=== PATIENT | female | born 1980 | race African-American/Black ===

== ENCOUNTER 2017-11-22 22:12 | Emergency (ER) | payer OTHER ==
[2017-11-22] MEDS ORDERED: MORPHINE SULFATE 10 MG/ML INJ IV ONE (23:04)
[2017-11-23 00:16] LABS: ABSOLUTE LYMPHOCYTES (AUTO) 2.1 10^3/uL (0.5-4.7); ABSOLUTE MONOCYTES (AUTO) 0.9 10^3/uL (0.1-1.4); ABSOLUTE NEUT (AUTO) 7.8 10^3/uL (1.7-8.2); BASOPHILS % (AUTO) 0.3 % (0-2); EOSINOPHILS % (AUTO) 0.3 % (0-6); HEMATOCRIT 42.3 % (36.0-47.0); HEMOGLOBIN 14.3 g/dL (12.0-15.5); LYMPHOCYTES % (AUTO) 19.5 % (13-45); MEAN CORPUSCULAR HEMOGLOBIN 28.8 pg (27.0-33.4); MEAN CORPUSCULAR HGB CONC 33.7 g/dL (32.0-36.0); MEAN CORPUSCULAR VOLUME 85 fl (80-97); MONOCYTES % (AUTO) 8.1 % (3-13); PLATELET COUNT 277 10^3/uL (150-450); RED BLOOD COUNT 4.96 10^6/uL (3.72-5.28); RED CELL DISTRIBUTION WIDTH 14.1 % (11.5-14.0); SEGMENTED NEUTROPHILS % (AUTO) 71.8 % (42-78); TOTAL CELLS COUNTED % (AUTO) 100 %; WHITE BLOOD COUNT 10.9 10^3/uL (4.0-10.5)
[2017-11-23 01:27] LABS: ANION GAP 10 (5-19); BLOOD UREA NITROGEN 7 mg/dL (7-20); CALCIUM 9.6 mg/dL (8.4-10.2); CARBON DIOXIDE 24 mmol/L (22-30); CHLORIDE 105 mmol/L (98-107); GLUCOSE 112 mg/dL (75-110); POTASSIUM 4.3 mmol/L (3.6-5.0); SODIUM 138.7 mmol/L (137-145)
[2017-11-23] MEDS ORDERED: ONDANSETRON HCL INJ/PF 4 MG/2 ML SDV IV ONE (01:37)
[2017-11-23] MEDS ORDERED: KETOROLAC TROMETHAMINE INJ/PF 30 MG/1 ML SDV IV ONE (01:37)
[2017-11-23] MEDS ORDERED: MORPHINE SULFATE 10 MG/ML INJ IV ONE (02:32)
--- NOTE | 2017-11-23 04:07 | RADIOLOGY REPORT (SQ) ---
EXAM DESCRIPTION: U/S OB TRANSVAG W/DOPPLER CLINICAL HISTORY: 37 years, Female, vaginal bleeding in COMPARISON: None. TECHNIQUE: Transvaginal sonogram. LIMITATIONS: Active vaginal hemorrhage during exam. FINDINGS: demise pattern includes an intrauterine fetus with no cardiac activity. If the fetus were viable, its crown-rump length of 1.4 cm would correspond with gestational age of seven weeks four days. Ovarian fossae appear unremarkable. Ovaries are not visualized. No free fluid. IMPRESSION: demise pattern. Recommend serial laboratory/sonographic confirmation as clinically warranted.
[2017-11-23] MEDS ORDERED: HYDROCODONE/ACETAMINOPHEN 5-325 MG (6 TAB/ER DISP) PO PRN (04:23)
--- NOTE | 2017-11-23 04:28 | ER Document Report ---
ED General - General Chief Complaint: Vaginal Bleeding Stated Complaint: ABDOMINAL PAIN Time Seen by Provider: 11/22/17 22:54 Notes: Patient is a 37-year-old female presents with complaint of heavy vaginal bleeding. This patient's fifth . Patient is approximately 7 weeks . [facility] to [facility] and then yesterday was given medication to help induce an . Should today start having a lot of cramping and pain and heavy bleeding. She felt dizzy but did not pass out. No difficulty breathing. She was given a prescription for Percocet but has not yet filled this prescription. No other complaints at this time. TRAVEL OUTSIDE OF THE [place] IN LAST 30 DAYS: No - Related Data Allergies/Adverse Reactions: amoxicillin trihydrate [From Augmentin] Allergy (Verified 11/23/17 03:20) chlorpheniramine maleate [From Robitussin Cough & Cold] Allergy (Verified 03:20) dextromethorphan HBr [From Robitussin Cough & Cold] Allergy (Verified 11/23/17 03:20) diphenhydramine HCl [From Robitussin Cough & Cold] Allergy (Verified 11/23/17 03 :20) latex [Latex] Allergy (Verified 11/23/17 03:20) phenylephrine HCl [From Robitussin Cough & Cold] Allergy (Verified 11/23/17 03: 20) Potassium Clavulanate * [From Augmentin] Allergy (Verified 11/23/17 03:20) pseudoephedrine HCl [From Robitussin Cough & Cold] Allergy (Verified 11/23/17 03 :20) Sulfa (Sulfonamide Antibiotics) Allergy (Verified 11/23/17 03:20) Past Medical History - Social History Smoking Status: Never Smoker Frequency of alcohol use: None Drug Abuse: None Family History: Reviewed & Not Pertinent, Other - no FH of migraines. No immediate family members with brain aneurysms, early onset CVA. No sick familial contacts. Patient has suicidal ideation: No Patient has homicidal ideation: No Pulmonary Medical History: Reports: Hx Asthma Renal/ Medical History: Denies: Hx Peritoneal Dialysis Past Surgical History: Reports: Hx Section - 2, Hx Gynecologic Surgery - D&C - Immunizations Hx Diphtheria, Pertussis, Tetanus Vaccination: Yes Review of Systems - Review of Systems Notes: My Normal Review Basic REVIEW OF SYSTEMS: CONSTITUTIONAL : Denies fever, chills, or sweats. Denies recent illness. RESPIRATORY: Denies cough, cold, or chest congestion. Denies shortness of breath, difficulty breathing, or wheezing. GASTROINTESTINAL: Crampy lower abdominal pain. Denies nausea, vomiting, or diarrhea. GENITOURINARY: Denies difficulty urinating, painful urination, burning, frequency, or blood in urine. FEMALE GENITOURINARY: Heavy vaginal bleeding MUSCULOSKELETAL: Denies neck or back pain or joint pain or swelling. SKIN: Denies rash or skin lesions. NEUROLOGICAL: Denies altered mental status or loss of consciousness. Denies headache. Denies weakness or paralysis or loss of use of either side. Denies problems with gait or speech. Denies sensory or motor loss. ALL OTHER SYSTEMS REVIEWED AND NEGATIVE. Physical Exam - Vital signs Vitals: Temp Pulse Resp BP Pulse Ox 98.4 F 84 18 118/79 100 11/22/17 22:26 11/22/17 22:26 11/22/17 22:26 11/22/17 22:26 11/22/17 22:26 - Notes Notes: General Appearance: Well nourished, alert, cooperative, no acute distress, moderate obvious discomfort. Vitals: reviewed, See vital signs table. Eyes: PERRL, EOMI, Conjuctiva clear Lungs: No wheezing, No rales, No rhonci, No accessory muscle use, good air exchange bilaterally. Heart: Normal rate, Regular rythm, No murmur, no rub Abdomen: Normal BS, soft, No rigidity, suprapubic abdominal tenderness outpatient, No guarding, no rebound, no abdominal masses, no organomegaly Pelvic exam: Normal external genitalia. Few small blood clots in vaginal vault. No active large hemorrhage. Pelvic exam was performed with female blood bank manager Sharlene Romo RN in the room. Extremities: good pulses in all extremities, no swelling or tenderness in the extremities, no edema. Neuro: speech clear, oriented x 3, normal affect, responds appropriately to questions. Course - Re-evaluation Re-evalutation: 11/23/17 04:33 Patient much improved after receiving the morphine. Pelvic exam showed some blood but the vaginal vault but no clots and cervical loss. Ultrasound shows findings consistent with demise. Patient's hemoglobin is normal. Informed patient that she is safe to be discharged home. I encourage her to fill her prescription for the Percocet. We will give her some [place] to take home with her until she is able get her Percocet prescription filled. Informed to return to ER immediately if she has fevers, syncope, difficulty breathing, or she feels she is worsening in any way. She does have an upcoming follow[facility]up appointment with [facility]. I informed her that she is to keep this appointment. Patient agrees with plan will be discharged home. Dictation of this chart was performed using voice recognition software; therefore, there may be some unintended grammatical errors. - Vital Signs Vital signs: Temp Pulse Resp BP Pulse Ox 98.5 F 73 18 132/84 H 97 11/23/17 03:05 11/23/17 03:05 11/23/17 03:05 11/23/17 03:05 11/23/17 03:05 - Laboratory Result Diagrams: 11/22/17 23:48 11/22/17 23:48 Laboratory results interpreted by me: 11/22/17 11/22/17 23:48 23:48 WBC 10.9 H RDW 14.1 H Glucose 112 H Beta HCG, Quant 18836.00 H Discharge - Discharge Clinical Impression: demise Condition: Good Disposition: HOME, SELF-CARE Instructions: Oral Narcotic Medication ([facility]) Additional Instructions: [facility] on your scheduled appointment. Please return to the ER immediately if you have fevers or if your bleeding becomes very heavy and you are concerned you are losing too much blood. Signs of losing too much blood with the passing out, difficulty breathing, or worsening weakness. Forms: Return to Work
[2017-11-23 04:45] VITALS: BP 114/62
== END 2017-11-23 04:50 | disposition home or self-care (01) ==
LOC: ER 22:12
DX: O02.1 Missed abortion (principal); R42 Dizziness and giddiness; Z88.2 Allergy status to sulfonamides; Z91.040 Latex allergy status
CPT/HCPCS: 96376; 99284; 96374; 96375; 36415; 84702; 85025; 80048; 76817; 93976; J1885; J2270 ×2; J2405

== ENCOUNTER 2017-11-26 06:43 | Day surgery (SDC) | payer OTHER ==
[2017-11-26 07:54] LABS: ABSOLUTE EOSINOPHILS # (AUTO) 0.1 10^3/uL (0.0-0.6); ABSOLUTE LYMPHOCYTES (AUTO) 2.1 10^3/uL (0.5-4.7); ABSOLUTE MONOCYTES (AUTO) 0.6 10^3/uL (0.1-1.4); ABSOLUTE NEUT (AUTO) 4.7 10^3/uL (1.7-8.2); BASOPHILS % (AUTO) 0.7 % (0-2); HEMATOCRIT 36.5 % (36.0-47.0); HEMOGLOBIN 12.1 g/dL (12.0-15.5); LYMPHOCYTES % (AUTO) 28.4 % (13-45); MEAN CORPUSCULAR HEMOGLOBIN 28.1 pg (27.0-33.4); MEAN CORPUSCULAR VOLUME 85 fl (80-97); PLATELET COUNT 231 10^3/uL (150-450); RED BLOOD COUNT 4.29 10^6/uL (3.72-5.28); RED CELL DISTRIBUTION WIDTH 14.2 % (11.5-14.0); SEGMENTED NEUTROPHILS % (AUTO) 61.9 % (42-78); TOTAL CELLS COUNTED % (AUTO) 100 %; WHITE BLOOD COUNT 7.5 10^3/uL (4.0-10.5)
[2017-11-26 08:14] LABS: POTASSIUM 4.1 mmol/L (3.6-5.0)
[2017-11-26] MEDS ORDERED: PROPOFOL INJ 200 MG/20 ML VIAL IV ONE (09:22)
[2017-11-26] MEDS ORDERED: ACETAMINOPHEN 100 ML IV ONE (09:22)
[2017-11-26] MEDS ORDERED: LIDOCAINE 2% INJ-PF (20 MG/ML) 10 ML AMPUL ONE (09:22)
[2017-11-26] MEDS ORDERED: MIDAZOLAM 2 MG/2 ML INJ ONE (09:22)
[2017-11-26] MEDS ORDERED: FENTANYL CITRATE INJ/PF 100 MCG/2 ML AMPUL ONE ×2 (09:22→10:03)
[2017-11-26] MEDS ORDERED: ONDANSETRON HCL INJ/PF 4 MG/2 ML SDV ONE ×2 (09:28→14:30)
[2017-11-26] MEDS ORDERED: DEXAMETHASONE SOD PHOSPHATE INJ 4 MG/1 ML VIAL ONE ×2 (09:28→14:30)
[2017-11-26] MEDS ORDERED: OXYCODONE-ACETAMINOPHEN 5-325 MG TABLET PO PRN ×4 (10:01→11:57)
[2017-11-26] MEDS ORDERED: ONDANSETRON HCL INJ/PF 4 MG/2 ML SDV IV PRN (10:01)
[2017-11-26] MEDS ORDERED: PROMETHAZINE HCL INJ 25 MG/1 ML VIAL IV PRN ×2 (10:01)
[2017-11-26] MEDS ORDERED: FENTANYL CITRATE INJ/PF 100 MCG/2 ML AMPUL IV PRN ×3 (10:01)
[2017-11-26] MEDS ORDERED: MEPERIDINE HCL/PF INJ 25 MG/1 ML DISP.SYRIN IV PRN (10:01)
--- NOTE | 2017-11-26 10:59 | OPERATIVE REPORT E ---
Operative Report NAME: SOLOMON PANTOJA : 1980 AGE: 37Y DATE OF SURGERY: 11/26/2017 ROOM: PREOPERATIVE DIAGNOSIS: INCOMPLETE AB AT 7 WEEKS. POSTOPERATIVE DIAGNOSIS: INCOMPLETE AB AT 7 WEEKS. OPERATION: Suction dilation and curettage. SURGEON: LUI GRACE M.D. ANESTHESIA: Dr. Orta with general. FINDINGS: The uterus is sounded to approximately 8-1/2 cm. Copious amounts of tissue within the uterus obtained, the small amount of tissue that was extruding from an open os at the beginning of the procedure. COMPLICATIONS: None. ESTIMATED BLOOD LOSS: 50 mL. PROCEDURE: The patient was taken to the operating room, prepared and draped in normal size and function in the dorsal lithotomy position under sterile conditions. An in and out catheter was performed of approximately 50 mL of clear urine. Sterile speculum was placed in the vagina. The cervix was prepped with Betadine and grasped on the anterior lip with a single-toothed tenaculum. The uterus was then sounded to approximately 8.5 cm with uterine sounds, dilated to accommodate a 12 mm curved suction curette. The suction curette was applied into the uterus and a significant amount of tissue was obtained that did look like deciduous-type tissue. Approximately 4 passes were made with the curette until no tissue was coming forth. A sharp curettage was then performed with 360 degrees of good grit within the uterus and the procedure was then concluded. The os was starting to close down at the end of the procedure. Instruments were removed. Sponge, lap, and needle counts were correct x2 and the patient was taken to Recovery in stable condition. DICTATING PHYSICIAN: LUI GRACE M.D. [id number] PHY#: [id number] ID: [id number] JOB#: [id number] ACCT: [id number] cc:LUI GRACE M.D. >
[2017-11-26] MEDS ORDERED: HYDROMORPHONE HCL INJ/PF 2 MG/ML AMPULE IM PRN (11:56)
[2017-11-26] MEDS ORDERED: IBUPROFEN 800 MG TABLET PO PRN (11:56)
[2017-11-26] MEDS ORDERED: RINGERS SOLUTION,LACTATED 1,000 ML IV PRN (11:57)
[2017-11-26 13:42] VITALS: BP 136/84
[2017-11-26] MEDS ORDERED: SUCCINYLCHOLINE CHLORIDE INJ 200 MG/10 ML VIAL ONE (14:30)
== END 2017-11-26 12:15 | disposition home or self-care (01) ==
LOC: OROUT 06:43
PROVIDERS: ATTEND Obstetrics & Gynecology
PROC: 10D17ZZ Extraction of Products of Conception, Retained, Via Natural or Artificial Opening (ICD-10-PCS; principal; 2017-11-26 09:00)
DX: O02.1 Missed abortion (principal); E03.9 Hypothyroidism, unspecified; E78.00 Pure hypercholesterolemia, unspecified; E11.9 Type 2 diabetes mellitus without complications; E66.01 Morbid (severe) obesity due to excess calories; Z68.41 Body mass index [BMI] 40.0-44.9, adult; Z79.84 Long term (current) use of oral hypoglycemic drugs; Z88.2 Allergy status to sulfonamides; Z88.8 Allergy status to other drugs, medicaments and biological substances; Z79.1 Long term (current) use of non-steroidal anti-inflammatories (NSAID); Z91.040 Latex allergy status
CPT/HCPCS: 36415; 82947; 84132; 85025; 88305 ×2; 59820; J2250; J1100; J3010; J0330; J2405; J2704; J3490; J0131; 1965

== ENCOUNTER 2019-02-14 01:15 | Emergency (ER) | payer OTHER ==
[2019-02-14] MEDS ORDERED: LIDOCAINE 1%/EPINEPHRINE INJ 20 ML VIAL INJ ONE (01:36)
[2019-02-14] MEDS ORDERED: DOXYCYCLINE HYCLATE 100 MG TABLET PO ONE (01:36)
--- NOTE | 2019-02-14 01:56 | ER Document Report ---
ED General - General Chief Complaint: Insect Bite Stated Complaint: POSSIBLE BUG BITE Time Seen by Provider: 02/14/19 01:27 Notes: Patient is a pleasant 38-year-old female presents with complaint of possible bug bite on the right inner thigh. She says started a small bump but now the larger swollen area. No fevers. No vomiting. No diarrhea. No previous history of having this in the past. She did not actually see a bug bite of the leg. TRAVEL OUTSIDE OF THE [place] IN LAST 30 DAYS: No - Related Data Allergies/Adverse Reactions: amoxicillin trihydrate [From Augmentin] Allergy (Verified 11/23/17 03:20) chlorpheniramine maleate [From Robitussin Cough & Cold] Allergy (Verified 11/23/17 03:20) dextromethorphan HBr [From Robitussin Cough & Cold] Allergy (Verified 11/23/17 03:20) diphenhydramine HCl [From Robitussin Cough & Cold] Allergy (Verified 11/23/17 03:20) latex [Latex] Allergy (Verified 11/23/17 03:20) nickel Allergy (Verified 11/26/17 07:22) phenylephrine HCl [From Robitussin Cough & Cold] Allergy (Verified 11/23/17 03:20) Potassium Clavulanate * [From Augmentin] Allergy (Verified 11/23/17 03:20) pseudoephedrine HCl [From Robitussin Cough & Cold] Allergy (Verified 11/23/17 03:20) Sulfa (Sulfonamide Antibiotics) Allergy (Verified 11/23/17 03:20) Past Medical History - Social History Smoking Status: Never Smoker Frequency of alcohol use: None Drug Abuse: None Family History: Reviewed & Not Pertinent, Other - no FH of migraines. No immediate family members with brain aneurysms, early onset CVA. No sick familial contacts. - Past Medical History Cardiac Medical History: Denies: Hx Coronary Artery Disease, Hx Heart Attack, Hx Hypertension Pulmonary Medical History: Reports: Hx Asthma Denies: Hx Bronchitis, Hx COPD, Hx Pneumonia Neurological Medical History: Denies: Hx Cerebrovascular Accident, Hx Seizures Renal/ Medical History: Denies: Hx Peritoneal Dialysis Musculoskeletal Medical History: Denies Hx Arthritis Past Surgical History: Reports: Hx Section - 2, Hx Gynecologic Surgery - D&C - Immunizations Hx Diphtheria, Pertussis, Tetanus Vaccination: Yes Review of Systems - Review of Systems Notes: My Normal Review Basic REVIEW OF SYSTEMS: CONSTITUTIONAL : Denies fever, chills, or sweats. Denies recent illness. MUSCULOSKELETAL: Pain and swelling right inner thigh SKIN: Possible abscess right inner thigh. NEUROLOGICAL: Denies altered mental status or loss of consciousness. Denies headache. Denies weakness or paralysis or loss of use of either side. Denies problems with gait or speech. Denies sensory or motor loss. ALL OTHER SYSTEMS REVIEWED AND NEGATIVE. Physical Exam - Vital signs Vitals: Temp Pulse Resp BP Pulse Ox 97.9 F 85 20 122/72 99 02/14/19 01:22 02/14/19 01:22 02/14/19 01:02/14/19 01:02/14/19 01:22 - Notes Notes: General Appearance: Well nourished, alert, cooperative, no acute distress, no obvious discomfort. Vitals: reviewed, See vital signs table. Eyes: Conjuctiva clear Extremities: strength 5/5 in all extremities, good pulses in all extremities, 3 cm area of induration in the right inner thigh. No spreading erythema or redness. No crepitance to palpation. Bedside ultrasound confirms that there is a fluid pocket underneath the area of induration consistent with abscess. Skin: warm, dry, appropriate color, no rash Neuro: speech clear, oriented x 3, normal affect, responds appropriately to questions. Course - Re-evaluation Re-evalutation: 02/14/19 02:34 Performed a incision and drainage of the abscess. Small amount of purulent drainage was expressed. This voiced too small to pack. Patient placed on doxycycline. She is encouraged to return to ER if she has any fevers, spreading redness or swelling, or if she feels she is worsening in any way. Patient agrees with plan will be discharged home. Dictation of this chart was performed using voice recognition software; therefore, there may be some unintended grammatical errors. - Vital Signs Vital signs: Temp Pulse Resp BP Pulse Ox 97.9 F 85 20 122/72 99 02/14/19 01:22 02/14/19 01:02/14/19 01:02/14/19 01:02/14/19 01:22 Procedures - Incision and Drainage Right Thigh Type: Simple Anesthetic type: 1% Lidocaine w/epi mL's of anesthetic: 2 Blade size: 11 I&D procedure: Betadine prep applied Incision Method: Incision made by scalpel Amount/type of drainage: small purulent Discharge - Discharge Clinical Impression: Abscess Condition: Good Disposition: HOME, SELF-CARE Additional Instructions: Please wash area with soap and water twice a day. Pat dry. Please take the antibiotic as prescribed. The antibiotic I prescribed you is doxycycline. Doxycycline will make your skin more sensitive to the sun so please make sure you keep your skin covered or wear sunscreen whenever out in the sun. Please return to the ER immediately if you have fevers, increasing swelling or redness to the thigh, or if you feel you are worsening in any way. Prescriptions: Doxycycline Hyclate 100 mg PO BID #14 capsule Forms: Return to Work
[2019-02-14 03:16] VITALS: BP 112/68
== END 2019-02-14 03:16 | disposition home or self-care (01) ==
LOC: ER 01:15
DX: L02.415 Cutaneous abscess of right lower limb (principal); J45.909 Unspecified asthma, uncomplicated; Z88.0 Allergy status to penicillin; Z88.8 Allergy status to other drugs, medicaments and biological substances; Z91.040 Latex allergy status; Z91.048 Other nonmedicinal substance allergy status; Z88.2 Allergy status to sulfonamides
CPT/HCPCS: 99281; 10060; J3490

== ENCOUNTER 2019-04-09 11:47 | Emergency (ER) | payer OTHER ==
[2019-04-09 11:52] VITALS: BP 131/81
[2019-04-09] MEDS ORDERED: ACETAMINOPHEN 325 MG TABLET PO ONE (12:46)
--- NOTE | 2019-04-09 12:47 | ER Document Report ---
HPI - HPI Patient complains to provider of: back pain Time Seen by Provider: 04/09/19 12:39 Onset: Last week Onset/Duration: Persistent Quality of pain: Achy Pain Level: 3 Context: Patient complains of right lower back that radiates to the right lower extremity for the past week. Patient denies any recent injury although does report a previous history of sciatica in the past. Patient also reports some urinary frequency but denies any dysuria or hematuria. Associated Symptoms: Other - low back pain, urinary freq. denies: Fever, Headache Exacerbated by: Standing, Movement Relieved by: Denies Similar symptoms previously: Yes Recently seen / treated by doctor: No - ROS ROS below otherwise negative: Yes Systems Reviewed and Negative: Yes All other systems reviewed and negative - CONSTITUTIONAL Constitutional: DENIES: Fever, Chills - NEURO Neurology: DENIES: Headache, Weakness - GASTROINTESTINAL Gastrointestinal: DENIES: Abdominal Pain, Nausea, Patient vomiting - URINARY Urinary: REPORTS: Frequency. DENIES: Dysuria, Urgency - REPRODUCTIVE Reproductive: DENIES: : - MUSCULOSKELETAL Musculoskeletal: REPORTS: Extremity pain, Back Pain. DENIES: Neck Pain - DERM Skin Color: Normal Skin Problems: None Past Medical History - General Information source: Patient - Social History Smoking Status: Never Smoker Chew tobacco use (# tins/day): No Frequency of alcohol use: None Drug Abuse: None Occupation: [employer] Family History: Reviewed & Not Pertinent, Other - no FH of migraines. No immediate family members with brain aneurysms, early onset CVA. No sick familial contacts. Patient has suicidal ideation: No Patient has homicidal ideation: No Pulmonary Medical History: Reports: Hx Asthma Endocrine Medical History: Reports: Hx Diabetes Mellitus Type 2 Renal/ Medical History: Denies: Hx Peritoneal Dialysis Musculoskeletal Medical History: Denies Hx Arthritis, Reports Other - sciatica Psychiatric Medical History: Reports: Hx Attention Deficit Hyperactivity Disorder Past Surgical History: Reports: Hx Section - 2, Hx Gynecologic Surgery - D&C - Immunizations Hx Diphtheria, Pertussis, Tetanus Vaccination: Yes Vertical Provider Document - CONSTITUTIONAL Agree With Documented VS: Yes Exam Limitations: No Limitations General Appearance: WD/WN, No Apparent Distress Notes: PHYSICAL EXAMINATION: GENERAL: Well-appearing, well-nourished and in no acute distress. HEAD: Atraumatic, normocephalic. EYES: sclera clear, anicteric, conjunctiva are normal. ENT: nares patent, Moist mucous membranes. NECK: Normal range of motion, supple no lymphadenopathy LUNGS: respirations unlabored HEART: Regular rate and rhythm without murmurs EXTREMITIES: Normal range of motion, no pitting or edema. No cyanosis. Gait normal, pt ambulates without difficulty BACK: Right lower lumbar paraspinal tenderness, no midline tenderness, no deformities or step-offs. No CVA tenderness. NEUROLOGICAL: Cranial nerves grossly intact. Normal speech, normal gait. No saddle anesthesia. PSYCH: Normal mood, normal affect. SKIN: Warm, Dry, normal turgor, no rashes or lesions noted. - INFECTION CONTROL TRAVEL OUTSIDE OF THE [place] IN LAST 30 DAYS: No Course - Vital Signs Vital signs: Temp Pulse Resp BP Pulse Ox 98.4 F 100 20 131/81 H 97 04/09/19 11:51 04/09/19 11:51 04/09/19 11:51 04/09/19 11:51 04/09/19 11:51 Discharge - Discharge Clinical Impression: Sciatica Qualifiers: Laterality: right Qualified Code(s): M54.31 - Sciatica, right side Condition: Stable Disposition: HOME, SELF-CARE Instructions: Ice Packs ([facility]), Low Back Pain ([facility]), Oral Narcotic Medication ([facility]), Sciatica ([facility]), Steroid Medication Additional Instructions: Return immediately for any new or worsening symptoms Followup with your primary care provider, call tomorrow to make a followup appointment Prescriptions: Hydrocodone/Acetaminophen [Kermit 5-325 mg Tablet] 1 tab PO Q6 PRN #12 tablet PRN Reason: Lidocaine [Lidoderm 5% (700 mg) Transdermal Patch] 1 patch TP DAILY PRN #10 adh..patch PRN Reason: Prednisone [Deltasone 20 mg Tablet] 3 tab PO DAILY 5 Days tablet Forms: Return to Work Referrals: SANTIAGO MELISSA PA-C [Primary Care Provider] - Follow up as needed
[2019-04-09 13:07] LABS: APPEARANCE,URINE SLIGHTLY-CLOUDY; BILIRUBIN,URINE NEGATIVE (NEGATIVE); COLOR,URINE YELLOW; GLUCOSE, URINE NEGATIVE (NEGATIVE); KETONES,URINE NEGATIVE (NEGATIVE); LEUKOCYTE ESTERASE,URINE NEGATIVE (NEGATIVE); NITRITE,URINE NEGATIVE (NEGATIVE); PROTEIN,URINE NEGATIVE (NEGATIVE); URINE SPECIFIC GRAVITY 1.026
[2019-04-09] MEDS ORDERED: HYDROCODONE/ACETAMINOPHEN 5-325 MG TABLET PO ONE (13:46)
== END 2019-04-09 13:53 | disposition home or self-care (01) ==
LOC: ER 11:47
DX: M54.41 Lumbago with sciatica, right side (principal); R35.0 Frequency of micturition; E11.9 Type 2 diabetes mellitus without complications; J45.909 Unspecified asthma, uncomplicated
CPT/HCPCS: 81001; 99283

== ENCOUNTER 2019-04-13 13:38 | Emergency (ER) | payer OTHER ==
--- NOTE | 2019-04-13 14:21 | ER Document Report ---
ED Medical Screen (RME) - General Chief Complaint: Ankle Pain Stated Complaint: RIGHT LEG PAIN Primary Care Provider: SANTIAGO MELISSA PA-C [Primary Care Provider] - Follow up as needed TRAVEL OUTSIDE OF THE [place] IN LAST 30 DAYS: No - HPI Notes: 04/13/19 14:19 Patient is a 38-year-old female with a history of type 2 diabetes who presents complaining of right calf pain that has been relatively constant over the past 4 to 5 days with cramping and tightness associated. Patient is not aware of any injury. Patient states on occasion she will feel pain radiate down from the top of her leg. Patient is that she does have some back issues as well, but the pain is primarily to the calf and she is having trouble ambulating. Denies any prolonged immobilization, distance travel, recent surgery/trauma, personal cancer history, hormone use, smoking, or previous DVT/PE. Denies ISSA, fever, neck pain, URI, n/v/d, Abd pain, dysuria, back pain, or rash. I have treated and performed a rapid initial assessment of this patient. A comprehensive ED assessment and evaluation of the patient, analysis of test results and completion of medical decision making process will be conducted by additional ED providers. PHYSICAL EXAMINATION: GENERAL: Well-appearing, well-nourished and in no acute distress. A&Ox4. Answers questions appropriately. LUNGS: Breath sounds clear to auscultation bilaterally and equal. No wheezes rales or rhonchi. HEART: Regular rate and rhythm without murmurs, rubs, gallops. Tachycardic. Extremities: Trace edema b/l LE's. + tenderness rt calf. - Related Data Allergies/Adverse Reactions: amoxicillin trihydrate [From Augmentin] Allergy (Verified 04/13/19 14:01) chlorpheniramine maleate [From Robitussin Cough & Cold] Allergy (Verified 04/13/19 14:01) dextromethorphan HBr [From Robitussin Cough & Cold] Allergy (Verified 04/13/19 14:01) diphenhydramine HCl [From Robitussin Cough & Cold] Allergy (Verified 04/13/19 14:01) latex [Latex] Allergy (Verified 04/13/19 14:01) nickel Allergy (Verified 04/13/19 14:01) phenylephrine HCl [From Robitussin Cough & Cold] Allergy (Verified 04/13/19 14:01) Potassium Clavulanate * [From Augmentin] Allergy (Verified 04/13/19 14:01) pseudoephedrine HCl [From Robitussin Cough & Cold] Allergy (Verified 04/13/19 14:01) Sulfa (Sulfonamide Antibiotics) Allergy (Verified 04/13/19 14:01) Past Medical History - Past Medical History Cardiac Medical History: Denies: Hx Coronary Artery Disease, Hx Heart Attack, Hx Hypertension Pulmonary Medical History: Reports: Hx Asthma Denies: Hx Bronchitis, Hx COPD, Hx Pneumonia Neurological Medical History: Denies: Hx Cerebrovascular Accident, Hx Seizures Endocrine Medical History: Reports: Hx Diabetes Mellitus Type 2 Renal/ Medical History: Denies: Hx Peritoneal Dialysis Musculoskeltal Medical History: Denies Hx Arthritis Psychiatric Medical History: Reports: Hx Attention Deficit Hyperactivity Disorder Past Surgical History: Reports: Hx Section - 2, Hx Gynecologic Surgery - D&C - Immunizations Hx Diphtheria, Pertussis, Tetanus Vaccination: Yes History of Influenza Vaccine for 05/2017 - 10/2017 Season: Yes Physical Exam - Vital signs Vitals: Temp Pulse Resp BP Pulse Ox 98.1 F 119 H 20 131/71 H 96 04/13/19 14:15 04/13/19 14:15 04/13/19 14:15 04/13/19 14:15 04/13/19 14:15 Course - Vital Signs Vital signs: Temp Pulse Resp BP Pulse Ox 98.1 F 119 H 20 131/71 H 96 04/13/19 14:15 04/13/19 14:15 04/13/19 14:15 04/13/19 14:15 04/13/19 14:15 Doctor's Discharge - Discharge Referrals: SANTIAGO MELISSA PA-C [Primary Care Provider] - Follow up as needed
[2019-04-13 14:38] LABS: ABSOLUTE LYMPHOCYTES (AUTO) 1.4 10^3/uL (0.5-4.7); ABSOLUTE MONOCYTES (AUTO) 0.5 10^3/uL (0.1-1.4); ABSOLUTE NEUT (AUTO) 10.8 10^3/uL (1.7-8.2); BASOPHILS % (AUTO) 0.3 % (0-2); EOSINOPHILS % (AUTO) 0.1 % (0-6); HEMATOCRIT 44.7 % (36.0-47.0); HEMOGLOBIN 14.9 g/dL (12.0-15.5); LYMPHOCYTES % (AUTO) 11.1 % (13-45); MEAN CORPUSCULAR HEMOGLOBIN 28.4 pg (27.0-33.4); MEAN CORPUSCULAR HGB CONC 33.4 g/dL (32.0-36.0); MEAN CORPUSCULAR VOLUME 85 fl (80-97); MONOCYTES % (AUTO) 4.2 % (3-13); PLATELET COUNT 266 10^3/uL (150-450); RED BLOOD COUNT 5.26 10^6/uL (3.72-5.28); RED CELL DISTRIBUTION WIDTH 14.4 % (11.5-14.0); SEGMENTED NEUTROPHILS % (AUTO) 84.3 % (42-78); TOTAL CELLS COUNTED % (AUTO) 100 %; WHITE BLOOD COUNT 12.8 10^3/uL (4.0-10.5)
[2019-04-13 14:45] LABS: INTERNATIONAL RATION (INR) 1.03; PROTHROMBIN TIME 13.5 SEC (11.4-15.4)
[2019-04-13 14:46] LABS: PARTIAL THROMBOPLASTIN TIME 23.4 SEC (23.5-35.8)
[2019-04-13 14:59] LABS: ALBUMIN 4.2 g/dL (3.5-5.0); ALKALINE PHOSPHATASE 92 U/L (38-126); ANION GAP 11 (5-19); ASPARTATE AMINO TRANSFERASE 17 U/L (14-36); BILIRUBIN,DIRECT 0.2 mg/dL (0.0-0.4); BILIRUBIN,TOTAL 0.7 mg/dL (0.2-1.3); BLOOD UREA NITROGEN 17 mg/dL (7-20); CALCIUM 9.4 mg/dL (8.4-10.2); CARBON DIOXIDE 25 mmol/L (22-30); CHLORIDE 104 mmol/L (98-107); GLUCOSE 144 mg/dL (75-110); POTASSIUM 4.1 mmol/L (3.6-5.0); TOTAL PROTEIN 7.3 g/dL (6.3-8.2)
[2019-04-13] MEDS ORDERED: LIDOCAINE 5% (700 MG) TRANSDERMAL ADH..PATCH TP ONE (15:40)
--- NOTE | 2019-04-13 15:42 | ER Document Report ---
ED General - General Chief Complaint: Ankle Pain Stated Complaint: RIGHT LEG PAIN Time Seen by Provider: 04/13/19 15:05 Primary Care Provider: SANTIAGO MELISSA PA-C [Primary Care Provider] - Follow up as needed Notes: Patient is a 38-year-old female who presents emergency department with a chief complaint of right lower leg pain. Her pain started 4 to 5 days ago and she was seen in given meloxicam, prednisone, Vicodin, and she tried to take her gabapentin and Flexeril with little relief. Patient states that she cannot really walk upstairs like she normally does. Patient denies any control. Denies any long distance trips, shortness of breath, difficulty breathing, or any other symptoms. She describes the pain as an aching pain. TRAVEL OUTSIDE OF THE [place] IN LAST 30 DAYS: No - Related Data Allergies/Adverse Reactions: amoxicillin trihydrate [From Augmentin] Allergy (Verified 04/13/19 14:01) chlorpheniramine maleate [From Robitussin Cough & Cold] Allergy (Verified 04/13/19 14:01) dextromethorphan HBr [From Robitussin Cough & Cold] Allergy (Verified 04/13/19 14:01) diphenhydramine HCl [From Robitussin Cough & Cold] Allergy (Verified 04/13/19 14:01) latex [Latex] Allergy (Verified 04/13/19 14:01) nickel Allergy (Verified 04/13/19 14:01) phenylephrine HCl [From Robitussin Cough & Cold] Allergy (Verified 04/13/19 14 :01) Potassium Clavulanate * [From Augmentin] Allergy (Verified 04/13/19 14:01) pseudoephedrine HCl [From Robitussin Cough & Cold] Allergy (Verified 04/13/19 14:01) Sulfa (Sulfonamide Antibiotics) Allergy (Verified 04/13/19 14:01) Past Medical History - Social History Smoking Status: Never Smoker Frequency of alcohol use: None Drug Abuse: None Family History: Reviewed & Not Pertinent, Other - no FH of migraines. No immediate family members with brain aneurysms, early onset CVA. No sick familial contacts. Patient has suicidal ideation: No Patient has homicidal ideation: No - Past Medical History Cardiac Medical History: Denies: Hx Coronary Artery Disease, Hx Heart Attack, Hx Hypertension Pulmonary Medical History: Reports: Hx Asthma Denies: Hx Bronchitis, Hx COPD, Hx Pneumonia Neurological Medical History: Denies: Hx Cerebrovascular Accident, Hx Seizures Endocrine Medical History: Reports: Hx Diabetes Mellitus Type 2 Renal/ Medical History: Denies: Hx Peritoneal Dialysis Musculoskeletal Medical History: Denies Hx Arthritis Psychiatric Medical History: Reports: Hx Attention Deficit Hyperactivity Disorder Past Surgical History: Reports: Hx Section - 2, Hx Gynecologic Surgery - D&C - Immunizations Hx Diphtheria, Pertussis, Tetanus Vaccination: Yes Review of Systems - Review of Systems Notes: REVIEW OF SYSTEMS: CONSTITUTIONAL : Denies recent illness. Denies recent unintentional weight loss. Denies fever, chills, or sweats. EENT: Denies eye, ear, throat, or mouth pain, discharge, or symptoms. Denies nasal or sinus congestion. CARDIOVASCULAR: Denies chest pain. RESPIRATORY: Denies shortness of breath, cough, congestion, difficulty breathing, or wheezing. GASTROINTESTINAL: Denies nausea, vomiting, and diarrhea. Denies abdominal pain. Denies constipation. GENITOURINARY: Denies difficulty urinating, burning, blood in urine, urgency or frequency. MUSCULOSKELETAL: See HPI SKIN: Denies rash, itchiness, or lesions HEMATOLOGIC : Denies easy bruising or bleeding. LYMPHATIC: Denies swollen, painful, enlarged glands. NEUROLOGICAL: Denies no numbness or tingling denies weakness. Denies headache. Denies altered mental status. Denies alteration in speech. PSYCHIATRIC: Denies stress, anxiety, alteration in sleep patterns, or depression. All other systems reviewed and negative. Physical Exam - Vital signs Vitals: Temp Pulse Resp BP Pulse Ox 98.1 F 119 H 20 131/71 H 96 04/13/19 14:15 04/13/19 14:15 04/13/19 14:15 04/13/19 14:15 04/13/19 14:15 - Notes Notes: PHYSICAL EXAMINATION: GENERAL: Appears well, healthy, well-nourished, no acute distress. HEAD: Normocephalic, atraumatic. EYES: PERRL, conjunctiva normal, all extraocular movements intact, sclera nonicteric ENT: Moist mucous membranes. NECK: Supple, no noticeable swelling, redness, rash. Normal range of motion. LUNGS: Equal breath sounds bilaterally and clear to auscultation. No wheezes rales or rhonchi. CARDIOVASCULAR: S1-S2, regular rate, regular rhythm. Radial pulses 2+, normal. ABDOMEN: Normoactive bowel sounds. Soft, nontender, no guarding, no rebound tenderness, and no masses palpated. EXTREMITIES: Normal strength and range of motion, tender right lower extremity at calf, posterior thigh, and Buttock. NEUROLOGICAL: Moves all extremities upon command. Strength 5/5 in all extremities. PSYCH: Normal mood, normal affect. SKIN: Warm, dry. No rash, lesions, ulcerations noted. Normal skin turgor. Course - Re-evaluation Re-evalutation: 04/13/19 16:30 Patient's venous Doppler study was negative for any DVT. She had a mild leukocytosis she had a mild leukocytosis of 12,000, but I suspect this is due to the patient starting to workout in gym earlier this month. I have advised her that she may benefit from physical therapy and have told her that she needs to see if her primary care doctor can refer her to physical therapy. Her history is most consistent with sciatic nerve pain. I will change her Flexeril to Ro baxin and give her some more lidocaine patches, as she states that the lidocaine patches do help her. I also educated her on some rolling and massage therapy. She will follow-up with her primary care provider. Follow-up precautions were given. Verbal discharge instructions were given to the patient. They verbalized understanding. They are stable for discharge. - Vital Signs Vital signs: Temp Pulse Resp BP Pulse Ox 98.1 F 119 H 20 131/71 H 96 04/13/19 14:15 04/13/19 14:15 04/13/19 14:15 04/13/19 14:15 04/13/19 14:15 - Laboratory Result Diagrams: 04/13/19 14:25 04/13/19 14:25 Laboratory results interpreted by me: 04/13/19 04/13/19 04/13/19 14:25 14:25 14:25 WBC 12.8 H RDW 14.4 H Lymph % (Auto) 11.1 L Absolute Neuts (auto) 10.8 H Seg Neutrophils % 84.3 H APTT 23.4 L Glucose 144 H - EKG Interpretation by Me Additional EKG results interpreted by me: 04/13/19 15:46 Sinus tachycardia, rate 122, MO 98; QRS 126; QTc 336; QTc 479. No ST elevations or depressions noted. Discharge - Discharge Clinical Impression: Right sciatic nerve pain Condition: Stable Disposition: HOME, SELF-CARE Additional Instructions: You were seen today in the emergency department for right lower back, buttock, thigh, and calf pain. Your ultrasound was normal. Your labs were normal. Please continue to take your prednisone. Stop taking her Flexeril and you will be switched over to Robaxin. You are also being sent home with a prescription for lidocaine patches. If you cannot get the patches, you can use Aspercreme with lidocaine. Please see if you can get a referral to physical therapy to help with your pain. Please continue to exercise and take rests when necessary. If you are unable to get into physical therapy, you can look into acupressure or massage to help with your pain. You can also foam roll at the gym to help relieve muscle tension. Prescriptions: Lidocaine [Lidoderm 5% (700 mg) Transdermal Patch] 1 patch TP PRN PRN #14 adh..patch PRN Reason: Methocarbamol [Robaxin 500 mg Tablet] 1,000 mg PO BIDP PRN #40 tablet PRN Reason: Referrals: SANTIAGO MELISSA PA-C [Primary Care Provider] - Follow up in 3-5 days
--- NOTE | 2019-04-13 15:49 | RADIOLOGY REPORT (SQ) ---
EXAM DESCRIPTION: VENOUS UNILATERAL LOWER COMPLETED DATE/TIME: 04/13/2019 3:36 pm REASON FOR STUDY: Rt lower leg pain COMPARISON: None. TECHNIQUE: Dynamic and static arredondo scale and color images acquired of the right leg venous system. S elected spectral images acquired with additional compression and augmentation maneuvers. The contrala teral common femoral vein and saphenofemoral junction were also imaged. Images stored on PACS. LIMITATIONS: None. FINDINGS: COMMON FEMORAL: Normal phasicity, compression and augmentation. No visualized echogenic ma terial on arredondo scale. No defects on color images. FEMORAL: Normal compression and augmentation. No visualized echogenic material on arredondo scale. No defe cts on color images. POPLITEAL: Normal compression, augmentation. No visualized echogenic material on arredondo scale. No defec ts on color images. CALF VESSELS: Normal compression, augmentation. No visualized echogenic material on arredondo scale. No de fects on color images. GSV and SSV: Normal compression, augmentation. No visualized echogenic material on arredondo scale. No def ects on color images. ANY DEEP VENOUS INSUFFICIENCY: Not evaluated. ANY EVIDENCE OF POPLITEAL CYST: No. OTHER: No other significant finding. CONTRALATERAL COMMON FEMORAL VEIN AND SAPHENOFEMORAL JUNCTION: Normal phasicity, compression and augmentation. No visualized echogenic material on arredondo scale. No de fects on color images. IMPRESSION: NO EVIDENCE OF DVT OR SVT IN THE RIGHT LEG. TECHNICAL DOCUMENTATION: JOB ID: [id number] [employer]- All Rights Reserved Reading location - IP/workstation name: [email or web address]
[2019-04-13] MEDS ORDERED: LIDOCAINE 5% (700 MG) TRANSDERMAL ADH..PATCH ONE ×2 (15:59→16:03)
[2019-04-13 16:46] VITALS: BP 136/75
--- NOTE | 2019-04-13 17:33 | EKG REPORT ---
SEVERITY:- DEFECTIVE ECG - SINUS TACHYCARDIA VENTRICULAR PREMATURE COMPLEX NONSPECIFIC IVCD WITH LAD BASELINE ARTIFACT REPEAT EKG : Confirmed by: Tona Foss MD 13-Apr-2019 17:31:53
== END 2019-04-13 16:45 | disposition home or self-care (01) ==
LOC: ER 13:38
DX: M54.31 Sciatica, right side (principal); M79.661 Pain in right lower leg; D72.829 Elevated white blood cell count, unspecified; J45.909 Unspecified asthma, uncomplicated; E11.9 Type 2 diabetes mellitus without complications; Z88.0 Allergy status to penicillin; Z88.8 Allergy status to other drugs, medicaments and biological substances; Z91.040 Latex allergy status; Z91.048 Other nonmedicinal substance allergy status; Z88.2 Allergy status to sulfonamides; R00.0 Tachycardia, unspecified
CPT/HCPCS: 36415; 80053; 85025; 85610; 85730; 93005; 93010; 93971; 99284

== ENCOUNTER → 2019-04-16 | Outpatient (CLI) | payer MEDICAID, OTHER ==
--- NOTE | 2019-04-16 14:28 | RADIOLOGY REPORT (SQ) ---
EXAM DESCRIPTION: MRI LUMBAR SPINE WITHOUT COMPLETED DATE/TIME: 04/16/2019 1:05 pm REASON FOR STUDY: (M54.5)LOW BACK PAIN M54.5 LOW BACK PAIN COMPARISON: None. TECHNIQUE: Sagittal and Axial imaging includes T1, T2, STIR and gradient echo sequences. Coronal T2/ HASTE imaging. LIMITATIONS: None. FINDINGS: VISUALIZED UPPER ABDOMEN: Limited evaluation. No acute or suspicious findings suggested. SEGMENTATION: No transitional anatomy. The lowest well-developed disc space is labeled L5-S1. ALIGNMENT: Anatomic. VERTEBRAE: Intact. BONE MARROW: Normal. No marrow replacement or reactive changes. DISC SIGNAL: Desiccation L5-S1. POSTERIOR ELEMENTS: Generally intact. No pars defect evident. HARDWARE: None in the spine. CORD AND CONUS: Normal in size and signal intensity. Conus at the appropriate level. SOFT TISSUES: No aortic aneurysm seen. No bulky retroperitoneal adenopathy or mass. No paraspinal mas s or fluid. L1-L2: No significant spinal stenosis or exit foraminal stenosis. L2-L3: No significant spinal stenosis or exit foraminal stenosis. L3-L4: No significant spinal stenosis or exit foraminal stenosis. L4-L5: No significant spinal stenosis or exit foraminal stenosis. L5-S1: Large right paracentral disc herniation which is contacting the transiting S1 nerve roots in t he canal, more so on the right. LOWER THORACIC: Incompletely imaged. No stenosis seen. SACRUM: Visualized upper sacrum intact. OTHER: No other significant findings. IMPRESSION: Large disc herniation L5-S1. TECHNICAL DOCUMENTATION: JOB ID: [id number] [employer]- All Rights Reserved Reading location - IP/workstation name: [email or web address]
== END ==
LOC: RAD 12:23
PROVIDERS: ATTEND Nurse Practitioner Family
DX: M54.5 Low back pain (principal)
CPT/HCPCS: 72148

== ENCOUNTER 2019-10-03 08:19 | Emergency (ER) | payer SELFPAY ==
--- NOTE | 2019-10-03 09:19 | ER Document Report ---
ED General - General Chief Complaint: Shortness Of Breath Stated Complaint: CHEST PAIN Time Seen by Provider: 10/03/19 08:50 Primary Care Provider: GWEN CANALES FNP-C [NO LOCAL MD] - Follow up as needed Mode of Arrival: Ambulatory TRAVEL OUTSIDE OF THE [place] IN LAST 30 DAYS: No - HPI Notes: 31-year-old female presents emergency room for evaluation of shortness of breath which started 1 day ago. Patient states that she does have a history of asthma, has not been using her rescue inhaler. Non-smoker. Denies any cardiac history. Denies any recent travel for long car rides, recent plan rides, denies any clotting disorders, being on control, history of DVTs, recent surgeries, history of cancer. Patient denies any chest pain. Denies maladaptive cardiac condition, chest pain, heart attack, strokes there is still living. Denies fevers, chills, chest pain,palpitations, shortness of breath, dyspnea, nausea, vomiting, diarrhea, abdominal pain, hematuria,blurred vision, double vision, loss of vision, speech changes, LH, dizziness, syncope, headaches, wheezing, ST, URI, neck pain, weakness, bowel or bladder dysfunction, saddle anesthesia, numbness or tingling in bilateral upper or lower extremities equally, muscle paralysis, weakness in bilateral upper or lower extremities equally or rash. Denies IV drug use. - Related Data Allergies/Adverse Reactions: amoxicillin trihydrate [From Augmentin] Allergy (Verified 04/13/19 14:01) chlorpheniramine maleate [From Robitussin Cough & Cold] Allergy (Verified 04/13/19 14:01) dextromethorphan HBr [From Robitussin Cough & Cold] Allergy (Verified 04/13/19 14:01) diphenhydramine HCl [From Robitussin Cough & Cold] Allergy (Verified 04/13/19 14:01) latex [Latex] Allergy (Verified 04/13/19 14:01) nickel Allergy (Verified 04/13/19 14:01) phenylephrine HCl [From Robitussin Cough & Cold] Allergy (Verified 04/13/19 14:01) Potassium Clavulanate * [From Augmentin] Allergy (Verified 04/13/19 14:01) pseudoephedrine HCl [From Robitussin Cough & Cold] Allergy (Verified 04/13/19 14:01) Sulfa (Sulfonamide Antibiotics) Allergy (Verified 04/13/19 14:01) Home Medications: albuterol, Past Medical History - General Information source: Patient - Social History Smoking Status: Never Smoker Chew tobacco use (# tins/day): No Frequency of alcohol use: None Drug Abuse: None Family History: Reviewed & Not Pertinent, Other - no FH of migraines. No immediate family members with brain aneurysms, early onset CVA. No sick familial contacts. Patient has suicidal ideation: No Patient has homicidal ideation: No - Past Medical History Cardiac Medical History: Denies: Hx Coronary Artery Disease, Hx Heart Attack, Hx Hypertension Pulmonary Medical History: Reports: Hx Asthma Denies: Hx Bronchitis, Hx COPD, Hx Pneumonia Neurological Medical History: Denies: Hx Cerebrovascular Accident, Hx Seizures Endocrine Medical History: Reports: Hx Diabetes Mellitus Type 2 Renal/ Medical History: Denies: Hx Peritoneal Dialysis Musculoskeletal Medical History: Denies Hx Arthritis Psychiatric Medical History: Reports: Hx Attention Deficit Hyperactivity Disorder Past Surgical History: Reports: Hx Section - 2, Hx Gynecologic Surgery - D&C - Immunizations Hx Diphtheria, Pertussis, Tetanus Vaccination: Yes Review of Systems - Review of Systems Constitutional: No symptoms reported EENT: No symptoms reported Cardiovascular: No symptoms reported Respiratory: See HPI Gastrointestinal: No symptoms reported Genitourinary: No symptoms reported Female Genitourinary: No symptoms reported Musculoskeletal: No symptoms reported Skin: No symptoms reported Hematologic/Lymphatic: No symptoms reported Neurological/Psychological: No symptoms reported Physical Exam - Vital signs Vitals: Temp Pulse Resp BP Pulse Ox 98.2 F 77 16 126/82 H 98 10/03/19 08:32 10/03/19 08:32 10/03/19 08:32 10/03/19 08:32 10/03/19 08:32 - Notes Notes: PHYSICAL EXAMINATION: reviewed vital signs by RN GENERAL: Well-appearing, well-nourished and in no acute distress. HEAD: Atraumatic, normocephalic. EYES: Pupils equal round and reactive to light, extraocular movements intact, c onjunctiva are normal. ENT: Nares patent, oropharynx clear without exudates. Moist mucous membranes. NECK: Normal range of motion, supple without lymphadenopathy LUNGS: Breath sounds clear to auscultation bilaterally and equal. No wheezes rales or rhonchi. HEART: Regular rate and rhythm without murmurs ABDOMEN: Soft, nontender, nondistended abdomen. No guarding, no rebound. No masses appreciated. Female : deferred Musculoskeletal: Normal range of motion, no pitting or edema. No cyanosis. NEUROLOGICAL: Cranial nerves grossly intact. Normal speech, normal gait. Normal sensory, motor exams PSYCH: Normal mood, normal affect. SKIN: Warm, Dry, normal turgor, no rashes or lesions noted. Course - Re-evaluation Re-evalutation: 10/03/19 10:51 Afebrile vital stable no distress. Nurse's notes reviewed. EKG heart rate of 80, normal sinus rhythm, last EKG did show sinus tachycardia is patient is Seen today. Chest x-ray negative for any acute findings such as pneumonia pneumothorax or other intrapulmonary issues. Troponin is negative, patient states the symptoms started well over 24 hours ago, is not experiencing any chest pain denied any chest pain so 1 troponin disposition. CBC negative for leukocytosis or anemia, CMP negative for hepatic or renal dysfunction, no electrolyte disturbances, urinalysis unremarkable, d-dimer is negative. Patient's complete work-up was unremarkable. She did admit to having a history of asthma however she does not have a rescue inhaler. Will prescribe patient neurasthenia today as well as following up with her primary care provider for reevaluation of care. Patient did request a work note for today and tomorrow which she will get. After performing a Medical Screening Examination, I estimate there is LOW risk for RUPTURED ESOPHAGUS, PNEUMOTHORAX, PULMONARY EM BOLISM, ACUTE CORONARY SYNDROME, OR THORACIC AORTIC DISSECTION, thus I consider the discharge disposition reasonable. I have reevaluated this patient multiple times and no significant life threatening changes are noted. The patient and I have discussed the diagnosis and risks, and we agree with discharging home with close follow-up. We also discussed returning to the Emergency Department immediately if new or worsening symptoms occur. We have discussed the symptoms which are most concerning (e.g., bloody sputum, worsening pain or shortness of breath) that necessitate immediate return. - Vital Signs Vital signs: Temp Pulse Resp BP Pulse Ox 98.2 F 77 16 126/82 H 98 10/03/19 08:32 10/03/19 08:32 10/03/19 08:32 10/03/19 08:32 10/03/19 08:32 - Laboratory Result Diagrams: 10/03/19 09:40 10/03/19 09:40 Laboratory results interpreted by me: 10/03/19 10/03/19 09:40 10:15 RDW 14.3 H Urine Blood SMALL H Discharge - Discharge Clinical Impression: Shortness of breath Asthma Qualifiers: Asthma severity: unspecified severity Asthma persistence: unspecified Asthma complication type: unspecified Qualified Code(s): J45.909 - Unspecified asthma, uncomplicated Condition: Stable Disposition: HOME, SELF-CARE Additional Instructions: Your work-up was completely normal, your EKG was normal, your chest x-ray was normal, all your blood work as well as urinalysis was normal, the test that checks for a blood clot or a DVT was normal. Your work-up was unremarkable. Advised to carry rescue inhaler on your person. Avoid any triggers. Advised to take [id number] antihistamine. Work note given. Follow-up with your primary care provider within the next 24 to 48 hours. Return immediately for any new or worsening symptoms. Follow up with primary care provider, call tomorrow to make followup appointment. Prescriptions: Albuterol Sulfate [Proair Respiclick] 90 mcg IH Q4HP PRN #1 [id number].[email or web address] PRN Reason: Forms: Return to Work Referrals: GWEN CANALES FNP-C [NO LOCAL MD] - Follow up as needed ELINA MENDEZ MD [COMMUNITY BASED STAFF] - Follow up as needed
--- NOTE | 2019-10-03 09:49 | RADIOLOGY REPORT (SQ) ---
EXAM DESCRIPTION: CHEST 2 VIEWS COMPLETED DATE/TIME: 10/03/2019 9:33 am REASON FOR STUDY: sob COMPARISON: 06/18/2011 two-view chest EXAM PARAMETERS: NUMBER OF VIEWS: two views TECHNIQUE: Digital Frontal and Lateral radiographic views of the chest acquired. RADIATION DOSE: NA LIMITATIONS: none FINDINGS: LUNGS AND PLEURA: No opacities, masses or pneumothorax. No pleural effusion. MEDIASTINUM AND HILAR STRUCTURES: No masses or contour abnormalities. HEART AND VASCULAR STRUCTURES: Heart normal size. No evidence for failure. BONES: No acute findings. HARDWARE: None in the chest. OTHER: No other significant finding. IMPRESSION: NO ACUTE RADIOGRAPHIC FINDING IN THE CHEST. TECHNICAL DOCUMENTATION: JOB ID: [id number] 2010 [employer]- All Rights Reserved Reading location - IP/workstation name: [email or web address]
[2019-10-03 09:51] LABS: ABSOLUTE EOSINOPHILS # (AUTO) 0.1 10^3/uL (0.0-0.6); ABSOLUTE LYMPHOCYTES (AUTO) 1.9 10^3/uL (0.5-4.7); ABSOLUTE MONOCYTES (AUTO) 0.5 10^3/uL (0.1-1.4); ABSOLUTE NEUT (AUTO) 5.4 10^3/uL (1.7-8.2); BASOPHILS % (AUTO) 0.6 % (0-2); EOSINOPHILS % (AUTO) 0.7 % (0-6); HEMATOCRIT 42.3 % (36.0-47.0); HEMOGLOBIN 14.6 g/dL (12.0-15.5); LYMPHOCYTES % (AUTO) 24.2 % (13-45); MEAN CORPUSCULAR HEMOGLOBIN 29.4 pg (27.0-33.4); MEAN CORPUSCULAR HGB CONC 34.6 g/dL (32.0-36.0); MEAN CORPUSCULAR VOLUME 85 fl (80-97); MONOCYTES % (AUTO) 6.5 % (3-13); PLATELET COUNT 274 10^3/uL (150-450); RED BLOOD COUNT 4.99 10^6/uL (3.72-5.28); RED CELL DISTRIBUTION WIDTH 14.3 % (11.5-14.0); TOTAL CELLS COUNTED % (AUTO) 100 %; WHITE BLOOD COUNT 7.9 10^3/uL (4.0-10.5)
[2019-10-03 10:16] LABS: ALBUMIN 4.1 g/dL (3.5-5.0); ALKALINE PHOSPHATASE 97 U/L (38-126); ANION GAP 8 (5-19); ASPARTATE AMINO TRANSFERASE 24 U/L (14-36); BILIRUBIN,DIRECT 0.1 mg/dL (0.0-0.4); BILIRUBIN,TOTAL 0.7 mg/dL (0.2-1.3); BLOOD UREA NITROGEN 11 mg/dL (7-20); CALCIUM 9.4 mg/dL (8.4-10.2); CARBON DIOXIDE 29 mmol/L (22-30); CHLORIDE 103 mmol/L (98-107); GLUCOSE 91 mg/dL (75-110); TOTAL PROTEIN 7.5 g/dL (6.3-8.2)
[2019-10-03 10:26] LABS: APPEARANCE,URINE SLIGHTLY-CLOUDY; BILIRUBIN,URINE NEGATIVE (NEGATIVE); COLOR,URINE YELLOW; GLUCOSE, URINE NEGATIVE (NEGATIVE); KETONES,URINE NEGATIVE (NEGATIVE); LEUKOCYTE ESTERASE,URINE NEGATIVE (NEGATIVE); NITRITE,URINE NEGATIVE (NEGATIVE); PROTEIN,URINE NEGATIVE (NEGATIVE); URINE SPECIFIC GRAVITY 1.012; UROBILINOGEN,URINE NEGATIVE mg/dL (<2.0)
[2019-10-03 10:58] VITALS: BP 141/98
--- NOTE | 2019-10-03 13:23 | EKG REPORT ---
SEVERITY:- ABNORMAL ECG - SINUS RHYTHM LEFT VENTRICULAR HYPERTROPHY BORDERLINE T ABNORMALITIES, INFERIOR LEADS : Confirmed by: Jose Cárdenas MD 03-Oct-2019 13:22:58
== END 2019-10-03 11:09 | disposition home or self-care (01) ==
LOC: ER 08:19
DX: R06.02 Shortness of breath (principal); J45.909 Unspecified asthma, uncomplicated; Z88.2 Allergy status to sulfonamides; E11.9 Type 2 diabetes mellitus without complications
CPT/HCPCS: 36415; 71046; 80053; 81001; 81025; 84484; 85025; 85379; 93005; 93010

== ENCOUNTER 2019-10-22 09:00 | Emergency (ER) | payer SELFPAY ==
--- NOTE | 2019-10-22 10:23 | ER Document Report ---
HPI - HPI Time Seen by Provider: 10/22/19 09:50 Pain Level: 2 Notes: CHIEF COMPLAINT: Right lateral calf pain and numbness for 7 months HPI: 39-year-old female presenting to the emergency department complaining of right lateral calf pain and numbness for 7 months. States the pain and discomfort with the numbness seem to radiate through the lateral aspect of the calf down into the lateral right foot and fourth and fifth toes. She is taken no medications for symptoms, has not seen a primary provider for evaluation of symptoms. She denies back pain. Denies incontinence of urine or bowel ROS: See HPI - all other systems were reviewed and are otherwise negative Constitutional: no fever : no dysuria Integumentary: no rash Allergy: no hives Musculoskeletal: + extremity pain or swelling Neurological: + numbness/tingling, no weakness MEDICATIONS: I agree with the patient medications as charted by the RN. ALLERGIES: I agree with the allergies as charted by the RN. PAST MEDICAL HISTORY/PAST SURGICAL HISTORY: Reviewed and agree as charted by RN. SOCIAL HISTORY: Reviewed and agree as charted by RN. FAMILY HISTORY: No significant familial comorbid conditions directly related to patient complaint EXAM: Reviewed vital signs as charted by RN. CONSTITUTIONAL: Alert and oriented and responds appropriately to questions. Well-appearing; well-nourished HEAD: Normocephalic; atraumatic EYES: PERRL; Conjunctivae clear, sclerae non-icteric ENT: normal nose; no rhinorrhea; moist mucous membranes NECK: Supple without meningismus; non-tender CARD: symmetric distal pulses RESP: Normal chest excursion without splinting or tachypnea ABD/GI: non-distended BACK: The back appears normal and is non-tender to palpation, there is no CVA tenderness EXT: Normal ROM in all joints; non-tender to palpation; no cyanosis, no effusions, no edema SKIN: Normal color for age and race; warm; dry; good turgor; no acute lesions noted NEURO: Moves all extremities equally; Motor function intact. Subjective numbness in the lateral aspect of the right calf down through the ankle and lateral right foot, dorsalis pedis posterior tibial pulses are present in the right foot and ankle. PSYCH: The patient's mood and manner are appropriate. Grooming and personal hygi mary beth are appropriate. MDM: 39-year-old female with numbness tingling to the lateral aspect of the right calf into the right lateral foot, fourth and fifth toes in an S1 distribution. Has no back pain complaints no incontinence complaints. Discussed at length with the patient. I did offer Doppler imaging and x-ray imaging which she declines at this time, she has a radiculopathy clinically, low suspicion for DVT or fracture given the lack of trauma history, lack of swelling of the calf over the last [address] patient on steroids, refer to orthopedics for follow-up - CONSTITUTIONAL Constitutional: DENIES: Fever, Chills - REPRODUCTIVE Reproductive: DENIES: : Past Medical History - Social History Smoking Status: Never Smoker Chew tobacco use (# tins/day): No Frequency of alcohol use: None Drug Abuse: None Family History: Reviewed & Not Pertinent, Other - no FH of migraines. No immediate family members with brain aneurysms, early onset CVA. No sick familial contacts. Patient has suicidal ideation: No Patient has homicidal ideation: No - Past Medical History Cardiac Medical History: Denies: Hx Coronary Artery Disease, Hx Heart Attack, Hx Hypertension Pulmonary Medical History: Reports: Hx Asthma Denies: Hx Bronchitis, Hx COPD, Hx Pneumonia Neurological Medical History: Denies: Hx Cerebrovascular Accident, Hx Seizures Endocrine Medical History: Reports: Hx Diabetes Mellitus Type 2 Renal/ Medical History: Denies: Hx Peritoneal Dialysis Musculoskeletal Medical History: Denies Hx Arthritis Psychiatric Medical History: Reports: Hx Attention Deficit Hyperactivity Disorder Past Surgical History: Reports: Hx Section - 2, Hx Gynecologic Surgery - D&C - Immunizations Hx Diphtheria, Pertussis, Tetanus Vaccination: Yes Vertical Provider Document - INFECTION CONTROL TRAVEL OUTSIDE OF THE [place] IN LAST 30 DAYS: No Course - Vital Signs Vital signs: Temp Pulse Resp BP Pulse Ox 98.6 F 85 16 128/80 H 97 10/22/19 09:08 10/22/19 09:08 10/22/19 09:08 10/22/19 09:08 10/22/19 09:08 Discharge - Discharge Clinical Impression: Radiculopathy of leg Condition: Stable Disposition: HOME, SELF-CARE Instructions: Radiculopathy ([facility]) Additional Instructions: Take the steroids as prescribed. Follow-up closely with orthopedics for further evaluation and treatment call for appointment Prescriptions: Prednisone [Deltasone 20 mg Tablet] 2 tab PO DAILY 5 Days #10 tablet Referrals: ANTONIO FREDERICK MD [ACTIVE PROVISIONAL STAFF] - Follow up as needed
[2019-10-22 11:02] VITALS: BP 122/80
== END 2019-10-22 11:07 | disposition home or self-care (01) ==
LOC: ER 09:00
DX: M54.10 Radiculopathy, site unspecified (principal); M79.661 Pain in right lower leg; R20.0 Anesthesia of skin; R20.2 Paresthesia of skin; E11.9 Type 2 diabetes mellitus without complications; J45.909 Unspecified asthma, uncomplicated
CPT/HCPCS: 99283

== ENCOUNTER → 2020-04-03 | Outpatient (CLI) | payer OTHER ==
--- NOTE | 2020-04-03 12:30 | RADIOLOGY REPORT (SQ) ---
EXAM DESCRIPTION: MRI LUMBAR SPINE WITHOUT IMAGES COMPLETED DATE/TIME: 04/03/2020 10:33 am REASON FOR STUDY: M54.5 LOW BACK PAIN M54.5 LOW BACK PAIN COMPARISON: 04/16/2019. TECHNIQUE: Sagittal and Axial imaging includes T1, T2, STIR and gradient echo sequences. Coronal T2/ HASTE imaging. LIMITATIONS: None. FINDINGS: VISUALIZED UPPER ABDOMEN: Limited evaluation. No acute or suspicious findings suggested. SEGMENTATION: No transitional anatomy. The lowest well-developed disc space is labeled L5-S1. ALIGNMENT: Anatomic. VERTEBRAE: Intact. BONE MARROW: Normal. No marrow replacement or reactive changes. DISC SIGNAL: Desiccation of the L5-S1 disc. POSTERIOR ELEMENTS: Generally intact. No pars defect evident. HARDWARE: None in the spine. CORD AND CONUS: Normal in size and signal intensity. Conus at the appropriate level. SOFT TISSUES: No aortic aneurysm seen. No bulky retroperitoneal adenopathy or mass. No paraspinal mas s or fluid. L1-L2: No significant spinal stenosis or exit foraminal stenosis. L2-L3: No significant spinal stenosis or exit foraminal stenosis. L3-L4: No significant spinal stenosis or exit foraminal stenosis. L4-L5: No significant spinal stenosis or exit foraminal stenosis. L5-S1: Large right paracentral disc herniation which has increased in size. Right lateral recess jasvir nosis with impingement of the right S1 nerve root. LOWER THORACIC: Incompletely imaged. No stenosis seen. SACRUM: Visualized upper sacrum intact. OTHER: No other significant findings. IMPRESSION: LARGE RIGHT PARACENTRAL DISC HERNIATION AT L5-S1 WHICH HAS INCREASED IN SIZE. RIGHT LAT ERAL RECESS STENOSIS WITH IMPINGEMENT OF THE RIGHT S1 NERVE ROOT. TECHNICAL DOCUMENTATION: JOB ID: [id number] 2010 [employer]- All Rights Reserved Reading location - IP/workstation name: [email or web address]
== END ==
LOC: RAD 09:45
PROVIDERS: ATTEND Physician Assistant
DX: M54.5 Low back pain (principal)
CPT/HCPCS: 72148